=== PATIENT | male | born 1995 | race Caucasian/White ===

== ENCOUNTER 2016-12-16 08:15 | Emergency (ER) | payer SELFPAY ==
--- NOTE | 2016-12-16 10:31 | ER Document Report ---
ED General - General Chief Complaint: Abdominal Pain Stated Complaint: ABDOMINAL PAIN Time Seen by Provider: 12/16/16 08:39 TRAVEL OUTSIDE OF THE [place] IN LAST 30 DAYS: No - HPI Patient complains to provider of: Left lower quadrant abdominal pain Notes: Patient coming in for evaluation of lower quadrant abdominal pain. Patient states he is on Suboxone has been constipated in the past which is controlled with upper quadrant abdominal pain however it has been constant for the last 2 days denies any fever chills nausea vomiting. Patient is concerned that he may be constipated again. - Related Data Allergies/Adverse Reactions: No Known Allergies Allergy (Verified 12/16/16 08:17) Past Medical History - Social History Smoking Status: Never Smoker Chew tobacco use (# tins/day): No Frequency of alcohol use: Rare Drug Abuse: Marijuana Family History: Reviewed & Not Pertinent Patient has suicidal ideation: No Patient has homicidal ideation: No Pulmonary Medical History: Reports: Hx Asthma - As child Renal/ Medical History: Denies: Hx Kidney Stones, Hx Peritoneal Dialysis Musculoskeltal Medical History: Denies Hx Muscle Spasm, Denies Hx Muscle Weakness, Reports Hx Musculoskeletal Trauma - broke left wrist Traumatic Medical History: Reports: Hx Fractures - left wrist Surgical Hx: Negative - Immunizations Immunizations up to date: Yes Hx Diphtheria, Pertussis, Tetanus Vaccination: Yes Review of Systems - Review of Systems Constitutional: No symptoms reported EENT: No symptoms reported Cardiovascular: No symptoms reported Respiratory: No symptoms reported Gastrointestinal: Abdominal pain Genitourinary: No symptoms reported Male Genitourinary: No symptoms reported Musculoskeletal: No symptoms reported Skin: No symptoms reported Hematologic/Lymphatic: No symptoms reported Neurological/Psychological: No symptoms reported -: Yes All other systems reviewed and negative Physical Exam - Vital signs Vitals: Temp Pulse Resp BP Pulse Ox 98.6 F 85 16 143/77 H 100 12/16/16 08:18 12/16/16 08:18 12/16/16 08:18 12/16/16 08:18 12/16/16 08:18 Interpretation: Normal - General General appearance: Appears well, Alert - HEENT Head: Normocephalic, Atraumatic Eyes: Normal Pupils: PERRL - Respiratory Respiratory status: No respiratory distress Chest status: Nontender Breath sounds: Normal Chest palpation: Normal - Cardiovascular Rhythm: Regular Heart sounds: Normal auscultation Murmur: No - Abdominal Inspection: Normal Distension: No distension Bowel sounds: Normal Tenderness: No: Tender, McBurney's point, Tirado's sign, Guarding, Rebound Organomegaly: No organomegaly - Back Back: Normal, Nontender - Extremities General upper extremity: Normal inspection, Nontender, Normal color, Normal ROM , Normal temperature General lower extremity: Normal inspection, Nontender, Normal color, Normal ROM , Normal temperature, Normal weight bearing. No: Erin's sign - Neurological Neuro grossly intact: Yes Cognition: Normal Orientation: AAOx4 Ray Coma Scale Eye Opening: Spontaneous Anastasiia Coma Scale Verbal: Oriented Ray Coma Scale Motor: Obeys Commands Anastasiia Coma Scale Total: 15 Speech: Normal Motor strength normal: LUE, RUE, LLE, RLE Sensory: Normal - Psychological Associated symptoms: Normal affect, Normal mood - Skin Skin Temperature: Warm Skin Moisture: Dry Skin Color: Normal Course - Re-evaluation Re-evalutation: 12/16/16 11:43 Patient coming in for evaluation of lower quadrant abdominal pain. Acute abdominal series that showed some stool retention more likely causing his pain. Examination does not reveal any critical pathology. Patient was educated about the use of stool softeners and laxatives. The patient presents with abdominal pain without signs of peritonitis or other life-threatening or serious etiology. The patient appears stable for discharge and has been instructed to return immediately if the symptoms worsen in any way, or in 8- 12hr if not improved for re-evaluation. The patient has been instructed to return if the symptoms worsen or change in any way. - Vital Signs Vital signs: Temp Pulse Resp BP Pulse Ox 98.4 F 71 16 124/65 99 12/16/16 10:51 12/16/16 10:51 12/16/16 10:51 12/16/16 10:51 12/16/16 10:51 Discharge - Discharge Clinical Impression: Constipation Qualifiers: Constipation type: unspecified constipation type Qualified Code(s): K59.00 - Constipation, unspecified Condition: Good Disposition: HOME, SELF-CARE Instructions: Constipation ([facility]) Additional Instructions: Your x-ray today shows significant constipation. More likely this is due to the Suboxone that you are taking. I recommend taking a Colace or other stool softener. symptoms persist he may want to discuss with your family physician about possible colonoscopy. Prescriptions: Docusate Sodium [Colace 100 mg Capsule] 100 mg PO DAILY #30 capsule
--- NOTE | 2016-12-16 10:34 | RADIOLOGY REPORT (SQ) ---
EXAM DESCRIPTION: ACUTE ABDOMEN SERIES COMPLETED DATE/TIME: 12/16/2016 9:55 am REASON FOR STUDY: llq pain constipation? COMPARISON: None. NUMBER OF VIEWS: Three views. TECHNIQUE: Frontal chest, supine abdomen and upright abdomen radiographic images acquired. LIMITATIONS: None. FINDINGS: CHEST: Lungs clear of infiltrates. FREE AIR: None. No abnormal gas collections. BOWEL GAS PATTERN: Nonobstructive pattern. No dilated loops or air fluid levels. CALCIFICATIONS: No suspicious calcifications. HARDWARE: None in the abdomen. SOFT TISSUES: No gross mass or suggestion of organomegaly. BONES: No acute fracture. No worrisome bone lesions. OTHER: No other significant finding. IMPRESSION: NO RADIOGRAPHIC EVIDENCE FOR ACUTE ABDOMINAL DISEASE. TECHNICAL DOCUMENTATION: JOB ID: [id number] All Rights Reserved
[2016-12-16 10:53] VITALS: BP 124/65
== END 2016-12-16 10:53 | disposition home or self-care (01) ==
LOC: ER 08:15
DX: K59.00 Constipation, unspecified (principal); R10.9 Unspecified abdominal pain; R10.30 Lower abdominal pain, unspecified; Z79.899 Other long term (current) drug therapy
CPT/HCPCS: 74022; 99284

== ENCOUNTER 2018-12-06 21:37 | Emergency (ER) | payer SELFPAY ==
[2018-12-06] MEDS ORDERED: ONDANSETRON HCL INJ/PF 4 MG/2 ML SDV IV ONE (22:17)
[2018-12-06] MEDS ORDERED: NORMAL SALINE 1000 ML 1,000 ML IV ONE (22:17)
[2018-12-06 22:45] LABS: HEMATOCRIT 45.7 % (37.9-51.0); HEMOGLOBIN 16.1 g/dL (13.5-17.0); MEAN CORPUSCULAR HEMOGLOBIN 32.4 pg (27.0-33.4); MEAN CORPUSCULAR HGB CONC 35.3 g/dL (32.0-36.0); MEAN CORPUSCULAR VOLUME 92 fl (80-97); PLATELET COUNT 316 10^3/uL (150-450); RED BLOOD COUNT 4.98 10^6/uL (4.35-5.55); RED CELL DISTRIBUTION WIDTH 12.2 % (11.5-14.0); WHITE BLOOD COUNT 23.9 10^3/uL (4.0-10.5)
[2018-12-06 22:55] LABS: ALANINE AMINOTRANSFERASE 21 U/L (21-72); ALBUMIN 5.3 g/dL (3.5-5.0); ALKALINE PHOSPHATASE 80 U/L (38-126); ANION GAP 18 (5-19); ASPARTATE AMINO TRANSFERASE 24 U/L (17-59); BILIRUBIN,DIRECT 0.4 mg/dL (0.0-0.4); BILIRUBIN,TOTAL 1.9 mg/dL (0.2-1.3); BLOOD UREA NITROGEN 14 mg/dL (7-20); CALCIUM 10.7 mg/dL (8.4-10.2); CARBON DIOXIDE 21 mmol/L (22-30); CHLORIDE 105 mmol/L (98-107); GLUCOSE 146 mg/dL (75-110); POTASSIUM 3.5 mmol/L (3.6-5.0); SODIUM 143.7 mmol/L (137-145); TOTAL PROTEIN 8.9 g/dL (6.3-8.2)
[2018-12-06 23:22] LABS: ABSOLUTE LYMPHOCYTES# (MANUAL) 2.9 10^3/uL (0.5-4.7); ABSOLUTE MONOCYTES # (MANUAL) 1.7 10^3/uL (0.1-1.4); ABSOLUTE NEUTROPHILS# (MANUAL) 19.1 10^3/uL (1.7-8.2); BASOPHILS % (MANUAL) 1 % (0-2); EOSINOPHILS % (MANUAL) 0 % (0-6); LYMPHOCYTES % (MANUAL) 12 % (13-45); MONOCYTES % (MANUAL) 7 % (3-13); SEGMENTED NEUTROPHILS % (MAN) 80 % (42-78); TOTAL CELLS COUNTED 100
[2018-12-06 23:23] LABS: PLATELET COMMENT ADEQUATE; PLATELET GIANT PRESENT; TOXIC VACUOLATION PRESENT
--- NOTE | 2018-12-06 23:35 | RADIOLOGY REPORT (SQ) ---
EXAM DESCRIPTION: XR CHEST 1 VIEW COMPLETED DATE/TME: 12/06/2018 22:54 CLINICAL HISTORY: 23 years Male cough COMPARISON: 12/16/2016. FINDINGS: The cardiomediastinal silhouette appears unremarkable. No consolidating infiltrates or pleural effusions. No pneumothorax. IMPRESSION: No acute abnormality is identified.
--- NOTE | 2018-12-07 00:23 | ER Document Report ---
ED General - General Chief Complaint: Vomiting Stated Complaint: VOMITING,COUGH Time Seen by Provider: 12/06/18 22:54 Notes: Patient is a 23-year-old male without chronic medical problems who presents with complaints of cough for the past several days and vomiting today. Patient states that he had an episode of coughing that was so forceful it caused him to begin vomiting. States that since he had resolution of the coughing episode his nausea and vomiting have likewise resolved. He denies abdominal pain at any time and denies any symptoms currently. States that he feels quite well and would like to go home on the time of my initial assessment. Nothing has been noted to improve or worsen his symptoms. Regards to symptoms as being moderate to severe in intensity when present now absent. Multiple sick contacts with similar symptoms at home. Denies any shortness of breath, chest pain, lightheadedness, fever or syncope. TRAVEL OUTSIDE OF THE [place] IN LAST 30 DAYS: No - Related Data Allergies/Adverse Reactions: No Known Allergies Allergy (Verified 12/06/18 21:40) Past Medical History - General Information source: Patient - Social History Smoking Status: Never Smoker Frequency of alcohol use: None Drug Abuse: Marijuana Lives with: Spouse/Significant other Family History: Reviewed & Not Pertinent Patient has suicidal ideation: No Patient has homicidal ideation: No Pulmonary Medical History: Reports: Hx Asthma - As child Renal/ Medical History: Denies: Hx Kidney Stones, Hx Peritoneal Dialysis Musculoskeletal Medical History: Denies Hx Muscle Spasm, Denies Hx Muscle Weakness, Reports Hx Musculoskeletal Trauma - broke left wrist Traumatic Medical History: Reports: Hx Fractures - left wrist - Immunizations Immunizations up to date: Yes Hx Diphtheria, Pertussis, Tetanus Vaccination: Yes Review of Systems - Review of Systems Notes: Constitutional: Negative for fever. HENT: Negative for sore throat. Eyes: Negative for visual changes. Cardiovascular: Negative for chest pain. Respiratory: Negative for shortness of breath. Positive for cough Gastrointestinal: Positive for nausea and vomiting Genitourinary: Negative for dysuria. Musculoskeletal: Negative for back pain. Skin: Negative for rash. Neurological: Negative for headaches, weakness or numbness. 10 point ROS negative except as marked above and in HPI. Physical Exam - Vital signs Vitals: Temp Pulse Resp BP Pulse Ox 98.5 F 110 H 20 126/67 H 100 12/06/18 22:00 12/06/18 22:00 12/06/18 22:00 12/06/18 22:00 12/06/18 22:00 Notes: PHYSICAL EXAMINATION: GENERAL: Well-appearing, well-nourished and in no acute distress. HEAD: Atraumatic, normocephalic. EYES: Pupils equal round and reactive to light, extraocular movements intact, sclera anicteric, conjunctiva are normal. ENT: nares patent, oropharynx clear without exudates. Moist mucous membranes. NECK: Normal range of motion, supple without lymphadenopathy LUNGS: Breath sounds clear to auscultation bilaterally and equal. No wheezes rales or rhonchi. HEART: Regular rate and rhythm without murmurs ABDOMEN: Soft, nontender, normoactive bowel sounds. No guarding, no rebound. No masses appreciated. EXTREMITIES: Normal range of motion, no pitting or edema. No cyanosis. NEUROLOGICAL: No focal neurological deficits. Moves all extremities spontaneously and on command. PSYCH: Normal mood, normal affect. SKIN: Warm, Dry, normal turgor, no rashes or lesions noted. Course - Re-evaluation Re-evalutation: 12/07/18 00:22 Patient presents with 24 hours of cough but denies any associated shortness of breath. Patient states that he has had associated vomiting when he begins coughing very forcefully where he feels like he is gagging and causing himself to vomit. He adamantly denies any abdominal pain. At the time of my evaluation he states that his symptoms have completely resolved and he now feels completely fine. On abdominal exam he has no focal areas of tenderness, rebound or guarding lung exam is clear without wheezing, rales or diminished air movement. Vitals do not show any evidence of tachypnea or hypoxemia. Chest x-ray is clear. He denies chest pain or pleuritic discomfort to suggest a pulmonary embolus. Labs were obtained in triage. This does incidentally note a prominent leukocytosis which is nonspecific and could be reactive secondary to the patient's vomiting. I do not believe that this leukocytosis should induce a more aggressive work-up at this time given the absence of any symptoms, complaints, or vitals abnormalities at the time of my evaluation. I did reassess the patient on 2 occasions over the course of approximately 1 hour to ensure that he was not developing any new or concerning symptoms and that his vital signs remained within acceptable ranges. His heart rate has improved after receiving IV fluids. On 2 separate abdominal exams he continues to be without any tenderness to his abdomen. States he feels quite well would like to go home. He has had multiple sick contacts with similar symptoms. At this time will discharge with return precautions and follow-up recommendations. Verbal discharge instructions given a the bedside and opportunity for questions given. Medication warnings reviewed. Patient is in agreement with this plan and has verbalized understanding of return precautions and the need for primary care follow-up in the next 24-72 hours. - Vital Signs Vital signs: Temp Pulse Resp BP Pulse Ox 99.2 F 96 15 124/58 L 100 12/07/18 00:29 12/07/18 00:29 12/07/18 00:29 12/07/18 00:29 12/07/18 00:29 - Laboratory Result Diagrams: 12/06/18 22:26 12/06/18 22:26 Laboratory results interpreted by me: 12/06/18 12/06/18 22:26 22:26 WBC 23.9 H Seg Neuts % (Manual) 80 H Lymphocytes % (Manual) 12 L Abs Neuts (Manual) 19.1 H Abs Monocytes (Manual) 1.7 H Potassium 3.5 L Carbon Dioxide 21 L Glucose 146 H Calcium 10.7 H Total Bilirubin 1.9 H Total Protein 8.9 H Albumin 5.3 H - Diagnostic Test Radiology reviewed: Image reviewed, Reports reviewed Radiology results interpreted by me: 12/07/18 00:23 Chest x-ray: No acute infiltrate or pneumothorax Discharge - Discharge Clinical Impression: Post-tussive emesis Nausea and vomiting Qualifiers: Vomiting type: unspecified Vomiting Intractability: non-intractable Qualified Code(s): R11.2 - Nausea with vomiting, unspecified Leukocytosis Qualifiers: Leukocytosis type: unspecified Qualified Code(s): D72.829 - Elevated white blood cell count, unspecified Condition: Good Disposition: HOME, SELF-CARE Additional Instructions: Please return if you develop a fever >100.4, persistent vomiting, abdominal pain, shortness of breath, pass out, or have any other symptoms that are worrisome to you. Please follow-up with your primary doctor within the next 24 to 48 hours. Please have a recheck of your blood cell count to ensure that your white blood cell count is normalizing.
[2018-12-07 00:30] VITALS: BP 124/58
[2018-12-07] MEDS ORDERED: BENZONATATE 100 MG CAPSULE PO ONE (00:47)
== END 2018-12-07 01:02 | disposition home or self-care (01) ==
LOC: ER 21:37
DX: R11.2 Nausea with vomiting, unspecified (principal); D72.829 Elevated white blood cell count, unspecified
CPT/HCPCS: 99284; 96361; 96374; 36415; 85025; 80053; 71045; J2405; J7030

== ENCOUNTER 2019-02-24 20:01 | Emergency (ER) | payer OTHER ==
[2019-02-24] MEDS ORDERED: DIPH/PERTUSS(ACELL)/TETANUS VAC/PF 0.5 ML SYR (>=10YO) IM ONE (21:57)
--- NOTE | 2019-02-24 22:15 | ER Document Report ---
HPI - HPI Time Seen by Provider: 02/24/19 21:57 Pain Level: Denies Notes: Patient is a 23-year-old male with no significant past medical history who presents complaining of a laceration to his right posterior forearm status post injury by a metallic brand-new stove about 7 hours ago. He still able to move his wrist and arm without difficulties otherwise. Last tetanus was 9 years ago. Denies drug allergies. No other concerns or complaints. Denies any headache, fever, URI, sore throat, chest pain, palpitations, syncope, cough, shortness of breath, wheeze, dyspnea, abdominal pain, nausea/vomiting/diarrhea, urinary retention, dysuria, hematuria, numbness/tingling, muscle paralysis/weakness, or rash. - ROS Systems Reviewed and Negative: Yes All other systems reviewed and negative - MUSCULOSKELETAL Musculoskeletal: REPORTS: Extremity pain Past Medical History - Social History Smoking Status: Never Smoker Chew tobacco use (# tins/day): No Drug Abuse: Marijuana Family History: Reviewed & Not Pertinent Patient has suicidal ideation: No Patient has homicidal ideation: No Pulmonary Medical History: Reports: Hx Asthma - As child Renal/ Medical History: Denies: Hx Kidney Stones, Hx Peritoneal Dialysis Musculoskeletal Medical History: Denies Hx Muscle Spasm, Denies Hx Muscle Weakness, Reports Hx Musculoskeletal Trauma - broke left wrist Traumatic Medical History: Reports: Hx Fractures - left wrist - Immunizations Immunizations up to date: Yes Hx Diphtheria, Pertussis, Tetanus Vaccination: Yes Vertical Provider Document - CONSTITUTIONAL Agree With Documented VS: Yes Notes: PHYSICAL EXAMINATION: GENERAL: Well-appearing, well-nourished and in no acute distress. HEAD: Atraumatic, normocephalic. NECK: Normal range of motion, supple without lymphadenopathy. No midline tenderness. LUNGS: Breath sounds clear to auscultation bilaterally and equal. No wheezes rales or rhonchi. HEART: Regular rate and rhythm without murmurs, rubs, gallops. Musculoskeletal: Rt forearm: No erythema, warmth, ecchymosis, deformity, or swelling noted. + 1.5cm linear superficial flap-lac noted posterior forearm. N/V intact distal. FROM to passive/active at the wrist/elbow. Strength 5+/5. No other bony tenderness. Extremities: No cyanosis, clubbing, or edema b/l. Peripheral pulses 2+. Capillary refill less than 3 seconds. NEUROLOGICAL: Normal speech, normal gait. Normal sensory, motor exams otherwise unremarkable PSYCH: Normal mood, normal affect. SKIN: see above. No rash - INFECTION CONTROL TRAVEL OUTSIDE OF THE [place] IN LAST 30 DAYS: No Course - Re-evaluation Re-evalutation: 02/24/19 22:28 Patient is an afebrile, well-hydrated, 23-year-old male who presents to the ED with a laceration to his right posterior lateral forearm. The laceration is very superficial and has a small flap. Vitals are acceptable. PE is otherwise unremarkable for any neurovascular compromise, obvious tendon/ligament rupture, obvious fracture/dislocation, septic joint. Patient is nontoxic-appearing and is tolerating p.o. without difficulties. Wound was thoroughly irrigated and cleansed. Wound edges were approximated appropriately utilizing 3 simple interrupted sutures. Wound dressing was placed and wound instructions reviewed. Patient tolerated procedure well without any complications. Tetanus was updated today. No further labs or imaging warranted. Sutures will need removed in 10 days. Recheck with your PCM in 2-3 days. Consider consult with orthopedics if needed. Return to the ED with any worsening/concerning symptoms otherwise as reviewed in discharge. Patient is in agreement. - Vital Signs Vital signs: Temp Pulse Resp BP Pulse Ox 98.1 F 78 18 138/85 H 98 02/24/19 20:05 02/24/19 20:05 02/24/19 20:05 02/24/19 20:05 02/24/19 20:05 Procedures - Laceration/Wound Repair Right Arm Wound length (cm): 1.5 Wound's Depth, Shape: Superficial, Flap Laceration pre-procedure: Sterile PPE donned, Chloraprep applied, Sterile drapes applied Wound explored: Clean, No foreign body removed Irrigated w/ Saline (mLs): 500 Wound Debrided: Minimal Wound Repaired With: Sutures Suture Size/Type: 4:0, Nylon Number of Sutures: 3 Layer Closure?: No Post-procedure wound care: Sterile dressing applied Post-procedure NV exam normal: Yes Complications: No Discharge - Discharge Clinical Impression: Forearm laceration Qualifiers: Encounter type: initial encounter Laterality: right Qualified Code(s): S51.811A - Laceration without foreign body of right forearm, initial encounter Condition: Stable Disposition: HOME, SELF-CARE Instructions: Antibiotic Ointment Protection ([facility]), Soap Cleansing ([facility]), Tetanus Immunization Given ([facility]) Additional Instructions: Do not shower or bathe for 24 hours. After 24 hours you may shower but no submersion of the wound under water. Keep the original dressing on the wound for 24 hours unless the drainage soaks through. Change the dressing daily thereafter and keep the knots of the suture material clean from any dried discharge. You may leave the wound open to the air once there is no more discharge. See your PCM in 2-3 days for a recheck. Monitor for any signs of worsening pain or redness, purulent drainage, streaks, and/or fever. Return to the ED if noticing any of the above symptoms or as needed. Take medications as directed. Your sutures will need to be removed in 10 days. Prescriptions: Cephalexin Monohydrate [Keflex 500 mg Capsule] 500 mg PO BID #10 capsule Forms: Elevated Blood Pressure Referrals: [facility] ([facility]) [Provider Group] - Follow up as needed
[2019-02-24 22:47] VITALS: BP 124/81
== END 2019-02-24 22:47 | disposition home or self-care (01) ==
LOC: ER 20:01
DX: S51.811A Laceration without foreign body of right forearm, initial encounter (principal); Z23 Encounter for immunization; W26.8XXA Contact with other sharp object(s), not elsewhere classified, initial encounter
CPT/HCPCS: 90471; 90715; 99282

== ENCOUNTER 2020-03-26 00:08 | Emergency (ER) | payer SELFPAY ==
[2020-03-26] MEDS ORDERED: IBUPROFEN 800 MG TABLET PO ONE (01:57)
[2020-03-26] MEDS ORDERED: OXYCODONE-ACETAMINOPHEN 5-325 MG TABLET PO ONE (01:57)
[2020-03-26] MEDS ORDERED: CEPHALEXIN 500 MG CAPSULE PO ONE ×2 (01:57→04:45)
--- NOTE | 2020-03-26 02:00 | ER Document Report ---
ED Medical Screen (RME) - General Chief Complaint: Hand Injury Stated Complaint: LEFT HAND INJURY Time Seen by Provider: 03/26/20 01:56 Mode of Arrival: Ambulatory Information source: Patient Notes: 24-year-old male comes in today for crush injury to his left middle and ring fingers. Tetanus is within 5 years. Patient shows a picture depicting what may require some suturing to the middle finger and ring finger on the left hand. General: No acute distress Musculoskeletal left middle finger is wrapped and is not visualized in triage. Tip of left ring finger is lacerated with no active bleeding I have greeted and performed a rapid initial assessment of this patient. A comprehensive ED assessment and evaluation of the patient, analysis of test results and completion of the medical decision making process will be conducted by additional ED providers. TRAVEL OUTSIDE OF THE [place] IN LAST 30 DAYS: No - Related Data Allergies/Adverse Reactions: No Known Allergies Allergy (Verified 12/06/18 21:40) Past Medical History Pulmonary Medical History: Reports: Hx Asthma - As child Renal/ Medical History: Denies: Hx Kidney Stones, Hx Peritoneal Dialysis Musculoskeltal Medical History: Denies Hx Muscle Spasm, Denies Hx Muscle Weakness, Reports Hx Musculoskeletal Trauma - broke left wrist Traumatic Medical History: Reports: Hx Fractures - left wrist - Immunizations Immunizations up to date: Yes Hx Diphtheria, Pertussis, Tetanus Vaccination: Yes Physical Exam - Vital signs Vitals: Temp Pulse Resp BP Pulse Ox 98.0 F 91 16 135/86 H 97 03/26/20 00:14 03/26/20 00:14 03/26/20 00:14 03/26/20 00:14 03/26/20 00:14 Course - Vital Signs Vital signs: Temp Pulse Resp BP Pulse Ox 98.0 F 91 16 135/86 H 97 03/26/20 00:14 03/26/20 00:14 03/26/20 00:14 03/26/20 00:14 03/26/20 00:14
--- NOTE | 2020-03-26 02:56 | RADIOLOGY REPORT (SQ) ---
EXAM DESCRIPTION: XR HAND 3 OR MORE VIEWS COMPLETED DATE/TME: 03/26/2020 01:57 CLINICAL HISTORY: 24 years, Male, crush injury left middle and ring fingers COMPARISON: None. NUMBER OF VIEWS: 3 TECHNIQUE: 3 view left hand LIMITATIONS: None. FINDINGS: Avulsion fracture of the distal tuft of the third digit with adjacent soft tissue swelling. No dislocation. IMPRESSION: Avulsion fracture distal tuft third digit copyright 2010 [employer]- All Rights Reserved
[2020-03-26] MEDS ORDERED: BUPIVACAINE HCL 0.5 % INJ/PF 30 ML SDV INJ ONE (03:28)
--- NOTE | 2020-03-26 03:41 | ER Document Report ---
ED Hand/Wrist Injury - General Chief Complaint: Crush Injury Stated Complaint: LEFT HAND INJURY Time Seen by Provider: 03/26/20 01:56 Primary Care Provider: GERSON MAGDALENO DO [ACTIVE STAFF] - Follow up as needed Mode of Arrival: Ambulatory Notes: CHIEF COMPLAINT: Crush injury left third and fourth fingers HPI: 24-year-old male with a crush injury to the left third and fourth fingers with a pry bar. Patient sustained a laceration to the left third finger. Patient denies numbness or tingling in the fingertip denies other injuries or complaints. States he is up-to-date on his tetanus vaccination ROS: See HPI - all other systems were reviewed and are otherwise negative Constitutional: no fever Integumentary: Positive laceration Allergy: no hives Musculoskeletal: + extremity pain or swelling Neurological: no numbness/tingling, no weakness MEDICATIONS: I agree with the patient medications as charted by the RN. ALLERGIES: I agree with the allergies as charted by the RN. PAST MEDICAL HISTORY/PAST SURGICAL HISTORY: Reviewed and agree as charted by RN. SOCIAL HISTORY: Reviewed and agree as charted by RN. FAMILY HISTORY: No significant familial comorbid conditions directly related to patient complaint EXAM: Reviewed vital signs as charted by RN. CONSTITUTIONAL: Alert and oriented and responds appropriately to questions. Well-appearing; well-nourished HEAD: Normocephalic; atraumatic EYES: Conjunctivae clear, sclerae non-icteric ENT: normal nose; no rhinorrhea; moist mucous membranes NECK: Supple without meningismus CARD: Capillary refill less than 3 seconds; symmetric distal pulses RESP: Normal chest excursion without splinting or tachypnea ABD/GI: non-distended BACK: The back appears normal EXT: Normal ROM in all joints; no cyanosis, no effusions, no edema. There is slight bruising with tenderness to the tip of the left fourth finger. There is a laceration measuring approximately 1 cm across the distal aspect of the left third finger on the dorsal side. This does bisect the distal third of the nail. Sensation is intact in the distal tip of the finger with capillary refill less than 3 seconds. Patient is able to flex and extend the finger at the MCP, PIP and DIP joint space regions. SKIN: Normal color for age and race; warm; dry; good turgor NEURO: Moves all extremities equally; Motor and sensory function intact PSYCH: The patient's mood and manner are appropriate. Grooming and personal hygiene are appropriate. MDM: 24-year-old male crush injury to the third and fourth fingers of the left hand. There is a laceration through the nail and nailbed of the left third finger. This area will require repair and removal of a portion of the nail in order to repair the nailbed. TRAVEL OUTSIDE OF THE [place] IN LAST 30 DAYS: No - Related Data Allergies/Adverse Reactions: No Known Allergies Allergy (Verified 12/06/18 21:40) Past Medical History - General Information source: Patient - Social History Smoking Status: Never Smoker Family History: Reviewed & Not Pertinent Pulmonary Medical History: Reports: Hx Asthma - As child Renal/ Medical History: Denies: Hx Kidney Stones, Hx Peritoneal Dialysis Musculoskeletal Medical History: Denies Hx Muscle Spasm, Denies Hx Muscle Weakness, Reports Hx Musculoskeletal Trauma - broke left wrist Traumatic Medical History: Reports: Hx Fractures - left wrist - Immunizations Immunizations up to date: Yes Hx Diphtheria, Pertussis, Tetanus Vaccination: Yes Physical Exam - Vital signs Vitals: Temp Pulse Resp BP Pulse Ox 98.0 F 91 16 135/86 H 97 03/26/20 00:14 03/26/20 00:14 03/26/20 00:14 03/26/20 00:14 03/26/20 00:14 Course - Vital Signs Vital signs: Temp Pulse Resp BP Pulse Ox 98.0 F 91 16 135/86 H 97 03/26/20 00:14 03/26/20 00:14 03/26/20 00:14 03/26/20 00:14 03/26/20 00:14 Procedures - Laceration/Wound Repair Left Distal Finger 3rd digit Time completed: 04:44 Wound length (cm): 1 Wound's Depth, Shape: Linear, Nail-avulsed, Contused tissue Laceration pre-procedure: Sterile PPE donned, Sterile drapes applied, Other - Saline Anesthetic type: 0.5% Bupivacaine - Digital block left third finger with 2 mL Volume Anesthetic (mLs): 2 Wound explored: No foreign body removed, Contaminated Irrigated w/ Saline (mLs): 500 Wound Repaired With: Sutures - The distal third of the nail was partially avulsed this was removed manually, another third of the nail was removed leaving the nail root intact. The laceration extended horizontally across the nail bed. This was closed with good wound edge approximation after copious irrigation Suture Size/Type: 5:0, Other - Chromic Number of Sutures: 4 Layer Closure?: No Post-procedure wound care: Sterile dressing applied Post-procedure NV exam normal: Yes - Digital block Complications: No Discharge - Discharge Clinical Impression: Crushing injury of finger of left hand Nail avulsion, finger Qualifiers: Encounter type: initial encounter Qualified Code(s): S61.309A - Unspecified open wound of unspecified finger with damage to nail, initial encounter Laceration of finger, left, complicated Qualifiers: Encounter type: initial encounter Qualified Code(s): S61.412A - Laceration without foreign body of left hand, initial encounter Condition: Stable Disposition: HOME, SELF-CARE Additional Instructions: Make sure that when you change the dressing you use Vaseline or antibiotic ointment over the nailbed to help keep it moist and prevent significant discomfort when changing the dressing. Follow-up with orthopedics for further evaluation of the nailbed injury and the distal finger fracture. Take the antibiotics as prescribed. Pain medication as prescribed, no driving if taking narcotics for pain. Return for any concerns Prescriptions: Cephalexin Monohydrate [Keflex 500 mg Capsule] 500 mg PO Q6H 7 Days #28 capsule Hydrocodone/Acetaminophen [[place] 5-325 mg Tablet] 1 tab PO Q4 PRN #15 tablet PRN Reason: Referrals: GERSON MAGDALENO DO [ACTIVE STAFF] - Follow up as needed
[2020-03-26] MEDS ORDERED: HYDROCODONE/ACETAMINOPHEN 5-325 MG (6 TAB/ER DISP) PO PRN (04:54)
[2020-03-26 05:05] VITALS: BP 138/83
== END 2020-03-26 05:04 | disposition home or self-care (01) ==
LOC: ER 00:08
DX: S67.193A Crushing injury of left middle finger, initial encounter (principal); S62.633A Displaced fracture of distal phalanx of left middle finger, initial encounter for closed fracture; S61.313A Laceration without foreign body of left middle finger with damage to nail, initial encounter; S67.191A Crushing injury of left index finger, initial encounter; W23.0XXA Caught, crushed, jammed, or pinched between moving objects, initial encounter
CPT/HCPCS: 99284; 73130; 12001; J3490